=== PATIENT | female | born 1990 | race Caucasian/White ===

== ENCOUNTER 2021-04-13 11:15 | Inpatient (IN) | payer OTHER ==
[2021-04-13] MEDS: ELECTROLYTE-148 SOLN 1,000 ML IV SCH ×2 (11:45→23:40)
[2021-04-13 12:49] LABS: BASO % 0.5 % (0-2.0); EOS % 0.5 % (0-4.5); HEMOGLOBIN 12.9 GM/dL (10.7-15.3); LYMPH % 17.1 % (8-40); MCH 30.6 pg (25.7-33.7); MCHC 34.8 g/dl (32.0-36.0); MEAN CELL VOLUME 87.9 fl (80-96); MEAN PLT VOLUME 9.1 fl (7.5-11.1); MONO % 8.3 % (3.8-10.2); NEUT % 73.6 % (42.8-82.8); PLATELET COUNT 192 10^3/uL (134-434); RBC 4.21 M/mm3 (3.60-5.2); RDW 13.1 % (11.6-15.6); WHITE BLOOD COUNT 8.3 K/mm3 (4.0-10.0)
[2021-04-13 12:51] VITALS: BMI 28.5
[2021-04-13 12:54] LABS: INR 0.95 (0.83-1.09); PROTHROMBIN TIME (PATIENT) 10.6 SEC (9.7-13.0)
[2021-04-13] MEDS ORDERED: PCA PUMP NR ONE (13:01)
[2021-04-13] MEDS ORDERED: FENTANYL/BUPIVACAINE/NS/PF - PCEA - 50 ML DISP.SYRIN EP ONE ×2 (13:01→17:52)
[2021-04-13 13:10] LABS: BLOOD UREA NITROGEN 10.5 mg/dL (7-18); CALCIUM 8.6 mg/dL (8.5-10.1)
[2021-04-13] MEDS ORDERED: BUPIVACAINE HCL/PF 0.25% (2.5MG/ML) 10 ML VIAL ONE ×2 (13:10→19:22)
[2021-04-13 13:14] LABS: CREATININE 0.5 mg/dL (0.55-1.3)
[2021-04-13] MEDS ORDERED: NALOXONE HCL 0.4 MG/ML VIAL IVPUSH PRN (13:41)
[2021-04-13] MEDS ORDERED: FENTANYL/BUPIVACAINE/NS/PF - PCEA - 50 ML DISP.SYRIN EP SCH (13:45)
[2021-04-13] MEDS ORDERED: FAMOTIDINE 20 MG/50 ML IVPB 20 MG/50 ML MG IVPB ONE ×2 (14:02→14:37)
[2021-04-13 14:05] LABS: HIV INTERPRETATION NEGATIVE (NEGATIVE)
[2021-04-13] MEDS ORDERED: OXYTOCIN 30 UNITS in 0.9% NS 30 UNIT/500 ML INFUS.BAG IVPB ONE (18:05)
[2021-04-13] MEDS ORDERED: OXYTOCIN 30 UNITS in 0.9% NS 30 UNIT/500 ML INFUS.BAG IVPB SCH (18:15)
[2021-04-13] MEDS ORDERED: LIDOCAINE HCL 1% PRESERVATIVE FREE - 30ML VIAL ONE (20:18)
[2021-04-13] MEDS ORDERED: OXYTOCIN 20 UNITS in 0.9% NS 20 UNIT/1,000 ML INFUS.BAG IV ONE (20:19)
[2021-04-14] MEDS ORDERED: METHYLERGONOVINE MALEATE 0.2 MG/1 ML AMP IM PRN (00:25)
[2021-04-14] MEDS ORDERED: oxyCODONE HCL 5 MG TABLET PO PRN (00:25)
[2021-04-14] MEDS ORDERED: WITCH HAZEL 50% (TUCKS) 40 PAD/JAR PAD TP PRN (00:25)
[2021-04-14] MEDS ORDERED: BENZOCAINE 28 GM HEMORRHOIDAL OINTMENT TP PRN (00:25)
[2021-04-14] MEDS ORDERED: BENZOCAINE 20% 57 GM BOTTLE TP PRN (00:25)
[2021-04-14] MEDS ORDERED: BISACODYL 10 MG SUPP.RECT RC PRN (00:25)
[2021-04-14] MEDS ORDERED: OXYTOCIN 20 UNITS in 0.9% NS 20 UNIT/1,000 ML INFUS.BAG IV SCH (00:30)
[2021-04-14] MEDS: ACETAMINOPHEN 325 MG TABLET (FP) PO PRN ×3 (00:30→23:53)
[2021-04-14] MEDS: IBUPROFEN 600 MG TABLET (FP) PO PRN ×2 (00:30→15:01)
[2021-04-14] MEDS: PRENATAL VITAMINS W/ FOLIC ACID TABLET (FP) PO SCH (09:15)
[2021-04-14] MEDS: FAMOTIDINE 20 MG TABLET PO SCH ×2 (13:00→21:10)
[2021-04-14] MEDS ORDERED: SENNOSIDES/DOCUSATE COMBO (SENNA PLUS) TABLET (UD) PO PRN (22:00)
[2021-04-15] MEDS: IBUPROFEN 600 MG TABLET (FP) PO PRN ×2 (04:33→08:59)
[2021-04-15 08:31] VITALS: BP 119/81; PULSE 86; TEMP 97.7
[2021-04-15] MEDS: PRENATAL VITAMINS W/ FOLIC ACID TABLET (FP) PO SCH (09:00)
[2021-04-15 09:04] LABS: BASO % 0.3 % (0-2.0); EOS % 0.8 % (0-4.5); HEMATOCRIT 28.3 % (32.4-45.2); HEMOGLOBIN 10.2 GM/dL (10.7-15.3); MCH 31.9 pg (25.7-33.7); MCHC 36.1 g/dl (32.0-36.0); MEAN CELL VOLUME 88.5 fl (80-96); MEAN PLT VOLUME 8.9 fl (7.5-11.1); MONO % 8.7 % (3.8-10.2); NEUT % 66.2 % (42.8-82.8); PLATELET COUNT 166 10^3/uL (134-434); RDW 13.2 % (11.6-15.6); WHITE BLOOD COUNT 10.5 K/mm3 (4.0-10.0)
[2021-04-15] MEDS: FAMOTIDINE 20 MG TABLET PO SCH (09:09)
[2021-04-17 15:19] LABS: POC NITRAZINE POS
== END 2021-04-15 12:10 | disposition home or self-care (01) | DRG 560 ==
LOC: JLDR 11:15 → J3W 04-14 02:28
PROVIDERS: ADMIT Obstetrics & Gynecology; ATTEND Obstetrics & Gynecology
PROC: 0KQM0ZZ Repair Perineum Muscle, Open Approach (ICD-10-PCS; principal; 2021-04-14)
PROC: 10E0XZZ Delivery of Products of Conception, External Approach (ICD-10-PCS; 2021-04-14)
DX: O70.1 Second degree perineal laceration during delivery (principal); Z3A.39 39 weeks gestation of pregnancy; Z37.0 Single live birth
CPT/HCPCS: 36415; 59409; 80048; 83986-QW; 85025; 85610; 85730; 86780; 86850; 86900; 86901; 87389; C9803; U0003; U0005

== ENCOUNTER 2022-12-01 14:23 | Inpatient (IN) | payer OTHER ==
[~2022-12-01 14:23] MED LIST: ONDANSETRON 4 MG/2 ML VIAL IVPB ONE; SODIUM CHLORIDE 1,000 ML IV ONE
[2022-12-01] MEDS ORDERED: ONDANSETRON 4 MG/2 ML VIAL ONE (14:58)
[2022-12-01 15:22] LABS: BASO % 0.1 % (0-2.0); EOS % 0.4 % (0-4.5); HEMATOCRIT 32.7 % (32.4-45.2); HEMOGLOBIN 11.5 GM/dL (10.7-15.3); LYMPH % 6.9 % (8-40); MCH 30.3 pg (25.7-33.7); MCHC 35.1 g/dl (32.0-36.0); MEAN CELL VOLUME 86.3 fl (80-96); MEAN PLT VOLUME 8.2 fl (7.5-11.1); MONO % 6.4 % (3.8-10.2); NEUT % 86.2 % (42.8-82.8); PLATELET COUNT 198 10^3/uL (134-434); RBC 3.79 M/mm3 (3.60-5.2); RDW 13.5 % (11.6-15.6); WHITE BLOOD COUNT 8.9 K/mm3 (4.0-10.0)
[2022-12-01 15:48] LABS: POTASSIUM 3.8 mmol/L (3.5-5.1)
[2022-12-01 15:48] LABS: URINE APPEARANCE CLEAR; URINE BILIRUBIN NEGATIVE (NEGATIVE); URINE COLOR YELLOW; URINE GLUCOSE (UA) NEGATIVE (NEGATIVE); URINE KETONE NEGATIVE (NEGATIVE); URINE LEUK ESTERASE NEGATIVE (NEGATIVE); URINE NITRITE NEGATIVE (NEGATIVE); URINE PROTEIN NEGATIVE (NEGATIVE)
[2022-12-01 15:50] LABS: ALBUMIN 2.7 g/dl (3.4-5.0)
[2022-12-01 15:51] LABS: BLOOD UREA NITROGEN 12.8 mg/dL (7-18)
[2022-12-01 15:54] LABS: CREATININE 0.5 mg/dL (0.55-1.3)
[2022-12-01 15:55] LABS: BILIRUBIN,TOTAL 0.6 mg/dL (0.2-1); TOT PROT 6.4 g/dl (6.4-8.2)
[2022-12-01] MEDS ORDERED: PROMETHAZINE HCL 25 MG/1 ML VIAL ONE (21:22)
[2022-12-01] MEDS ORDERED: FAMOTIDINE 20 MG/50 ML IVPB 20 MG/50 ML MG IVPB ONE (21:22)
[2022-12-01] MEDS: PROMETHAZINE HCL 25 MG/1 ML VIAL IVPB SCH (21:33)
[2022-12-01] MEDS: FAMOTIDINE 20 MG/50 ML IVPB 20 MG/50 ML MG IVPB SCH (22:03)
[2022-12-01] MEDS: DEXTROSE 5%-LACTATED RINGERS 1,000 ML IV SCH (22:30)
[2022-12-02 00:56] VITALS: BMI 24.7
[2022-12-02] MEDS: PROMETHAZINE HCL 25 MG/1 ML VIAL IVPB SCH ×3 (03:23→15:52)
[2022-12-02 06:47] VITALS: RESP 18
[2022-12-02] MEDS ORDERED: LEVOTHYROXINE NA 125 MCG TABLET (FP) PO SCH (07:00)
[2022-12-02 08:44] VITALS: BP 98/63; PULSE 79; TEMP 97.9
[2022-12-02] MEDS: FAMOTIDINE 20 MG/50 ML IVPB 20 MG/50 ML MG IVPB SCH (09:01)
[2022-12-02] MEDS: DEXTROSE 5%-LACTATED RINGERS 1,000 ML IV SCH (09:01)
== END 2022-12-02 15:54 | disposition home or self-care (01) | DRG 833 ==
LOC: JDEL 14:23 → JLDR 21:30 → J3W 23:20
PROVIDERS: ADMIT Obstetrics & Gynecology; ATTEND Obstetrics & Gynecology
DX: O26.893 Other specified pregnancy related conditions, third trimester (principal); R11.2 Nausea with vomiting, unspecified; R53.1 Weakness; R42 Dizziness and giddiness; Z3A.30 30 weeks gestation of pregnancy
CPT/HCPCS: 36415; 80053; 81003; 82150; 83690; 84439; 84443; 85025; 87635; 93005; 93010

== ENCOUNTER 2023-01-29 06:50 | Inpatient (IN) | payer OTHER ==
[2023-01-29 08:29] LABS: BASO % 0.5 % (0-2.0); EOS % 0.9 % (0-4.5); HEMATOCRIT 35.6 % (32.4-45.2); HEMOGLOBIN 11.9 GM/dL (10.7-15.3); LYMPH % 22.1 % (8-40); MCH 28.1 pg (25.7-33.7); MCHC 33.4 g/dl (32.0-36.0); MEAN CELL VOLUME 83.9 fl (80-96); MEAN PLT VOLUME 9.1 fl (7.5-11.1); MONO % 9.1 % (3.8-10.2); NEUT % 67.4 % (42.8-82.8); PLATELET COUNT 199 10^3/uL (134-434); RBC 4.24 M/mm3 (3.60-5.2); RDW 13.1 % (11.6-15.6); WHITE BLOOD COUNT 7.7 K/mm3 (4.0-10.0)
[2023-01-29 08:39] LABS: INR 0.97 (0.83-1.09); PROTHROMBIN TIME (PATIENT) 11.3 SEC (9.7-13.0)
[2023-01-29 08:42] LABS: ACTIVATED PTT 25.9 SECONDS (25.2-36.5)
[2023-01-29] MEDS ORDERED: CITRIC ACID/SODIUM CITRATE 30 ML UNIT-DOSE CUP PO ONE (09:07)
[2023-01-29] MEDS ORDERED: OXYTOCIN 30 UNITS in 0.9% NS 30 UNIT/500 ML INFUS.BAG IVPB SCH (09:15)
[2023-01-29] MEDS: ELECTROLYTE-148 SOLN 1,000 ML IV SCH ×2 (09:20→22:15)
[2023-01-29 09:36] VITALS: RESP 18; BMI 28.1
[2023-01-29] MEDS ORDERED: OXYTOCIN 30 UNITS in 0.9% NS 30 UNIT/500 ML INFUS.BAG IVPB ONE (09:38)
[2023-01-29 09:51] LABS: POTASSIUM 4.1 mmol/L (3.5-5.1)
[2023-01-29 09:53] LABS: BLOOD UREA NITROGEN 9.8 mg/dL (7-18); CALCIUM 8.3 mg/dL (8.5-10.1)
[2023-01-29 09:56] LABS: CREATININE 0.5 mg/dL (0.55-1.3)
[2023-01-29] MEDS ORDERED: FENTANYL/BUPIVACAINE/NS/PF - PCEA - 50 ML DISP.SYRIN EP ONE (19:12)
[2023-01-29] MEDS ORDERED: NALOXONE HCL 0.4 MG/ML VIAL IVPUSH PRN (20:31)
[2023-01-29] MEDS ORDERED: FENTANYL/BUPIVACAINE/NS/PF - PCEA - 50 ML DISP.SYRIN EP SCH (20:45)
[2023-01-29] MEDS ORDERED: OXYTOCIN 20 UNITS in 0.9% NS 20 UNIT/1,000 ML INFUS.BAG IV ONE (22:49)
[2023-01-29] MEDS ORDERED: LIDOCAINE HCL 1% PRESERVATIVE FREE - 30ML VIAL ONE (22:49)
[2023-01-29] MEDS ORDERED: METHYLERGONOVINE MALEATE 0.2 MG/1 ML AMP IM PRN (23:16)
[2023-01-29] MEDS ORDERED: WITCH HAZEL 50% (TUCKS) 40 PAD/JAR PAD TP PRN (23:16)
[2023-01-29] MEDS ORDERED: oxyCODONE HCL 5 MG TABLET PO PRN (23:16)
[2023-01-29] MEDS ORDERED: BISACODYL 10 MG SUPP.RECT RC PRN (23:16)
[2023-01-29] MEDS ORDERED: BENZOCAINE 20% 57 GM BOTTLE TP PRN (23:16)
[2023-01-29] MEDS ORDERED: BENZOCAINE 28 GM HEMORRHOIDAL OINTMENT TP PRN (23:16)
[2023-01-29] MEDS ORDERED: OXYTOCIN 20 UNITS in 0.9% NS 20 UNIT/1,000 ML INFUS.BAG IV SCH (23:30)
[2023-01-30] MEDS: IBUPROFEN 600 MG TABLET (FP) PO PRN ×4 (01:25→20:13)
[2023-01-30 07:26] LABS: BASO % 0.2 % (0-2.0); EOS % 0.4 % (0-4.5); HEMATOCRIT 32.1 % (32.4-45.2); HEMOGLOBIN 10.6 GM/dL (10.7-15.3); LYMPH % 16.9 % (8-40); MCH 27.6 pg (25.7-33.7); MCHC 32.8 g/dl (32.0-36.0); MEAN PLT VOLUME 9.2 fl (7.5-11.1); MONO % 10.4 % (3.8-10.2); NEUT % 72.1 % (42.8-82.8); PLATELET COUNT 210 10^3/uL (134-434); RBC 3.83 M/mm3 (3.60-5.2); RDW 13.2 % (11.6-15.6); WHITE BLOOD COUNT 12.3 K/mm3 (4.0-10.0)
[2023-01-30] MEDS: FAMOTIDINE 20 MG TABLET PO SCH (09:37)
[2023-01-30] MEDS: PRENATAL VITAMINS W/ FOLIC ACID TABLET (FP) PO SCH (09:37)
[2023-01-30] MEDS ORDERED: FAMOTIDINE 20 MG TABLET PO ONE (09:45)
[2023-01-30 10:08] LABS: POC NITRAZINE POS
[2023-01-30] MEDS: ACETAMINOPHEN 325 MG TABLET (FP) PO PRN ×2 (12:00→18:04)
[2023-01-30] MEDS ORDERED: SENNOSIDES/DOCUSATE COMBO (SENNA PLUS) TABLET (UD) PO PRN (22:00)
[2023-01-31 08:56] VITALS: BP 117/68; PULSE 88; TEMP 98
[2023-01-31] MEDS: PRENATAL VITAMINS W/ FOLIC ACID TABLET (FP) PO SCH (09:04)
[2023-01-31] MEDS: FAMOTIDINE 20 MG TABLET PO SCH (09:04)
[2023-01-31] MEDS: ELECTROLYTE-148 SOLN 1,000 ML IV SCH (09:42)
== END 2023-01-31 12:10 | disposition home or self-care (01) | DRG 807 ==
LOC: JLDR 06:50 → J3W 01-30 01:21
PROVIDERS: ADMIT Obstetrics & Gynecology; ATTEND Obstetrics & Gynecology
PROC: 10E0XZZ Delivery of Products of Conception, External Approach (ICD-10-PCS; principal; 2023-01-29)
PROC: 0KQM0ZZ Repair Perineum Muscle, Open Approach (ICD-10-PCS; 2023-01-29)
PROC: 0W8NXZZ Division of Female Perineum, External Approach (ICD-10-PCS; 2023-01-29)
DX: O70.1 Second degree perineal laceration during delivery (principal); Z37.0 Single live birth; O99.283 Endocrine, nutritional and metabolic diseases complicating pregnancy, third trimester; Z3A.39 39 weeks gestation of pregnancy
CPT/HCPCS: 36415; 80048; 83986-QW; 85025; 85610; 85730; 86780; 86850; 86900; 86901; 87340

== ENCOUNTER 2024-12-13 14:10 | Day surgery (SDC) | payer BC ==
[2024-12-13] MEDS: IRON DEXTRAN COMPLEX 1,000 MG in SODIUM CHLORIDE 250 ML IVPB ONE (14:36)
[2024-12-13 17:10] VITALS: RESP 20; TEMP 97.9
[2024-12-13 17:35] VITALS: BP 113/71; PULSE 82
== END 2024-12-13 17:40 | disposition home or self-care (01) ==
LOC: JONCNONCHE 14:10 → J7W 14:35 → JONCNONCHE 17:40
PROVIDERS: ATTEND Internal Medicine Hematology & Oncology
PROC: 3E033GC Introduction of Other Therapeutic Substance into Peripheral Vein, Percutaneous Approach (ICD-10-PCS; principal; 2024-12-13)
DX: O99.013 Anemia complicating pregnancy, third trimester (principal); D50.9 Iron deficiency anemia, unspecified
CPT/HCPCS: J1750